=== PATIENT | female | born 1965 | race Caucasian/White ===

== ENCOUNTER 2019-06-09 16:52 | Emergency (ER) | payer SELFPAY ==
[2019-06-09] MEDS ORDERED: NA CHLORIDE 0.9% 1,000 ML ONE ×2 (17:27→19:08)
[2019-06-09 17:30] LABS: Absolute Lymphocytes (CBC) 3.1 K/uL (0.7-4.9); Basophils % 0.5 % (0-1.3); Hematocrit 38.9 % (36.0-45.0); Lymphocytes % 31.5 % (15.3-44.8); MPV 7.4 fL (7.6-11.3); RBC Red Blood Cell Count 4.56 M/uL (3.86-4.86)
[2019-06-09] MEDS ORDERED: ONDANSETRON 4 MG/2 ML VIAL ONE (17:34)
[2019-06-09] MEDS ORDERED: MEPERIDINE HCL 25 MG/0.5 ML ONE ×2 (17:34→19:08)
[2019-06-09 17:41] LABS: ALT/SGPT 30 U/L (12-78); AST/SGOT 32 U/L (15-37); Albumin 3.3 g/dL (3.4-5.0); Alkaline Phosphatase 57 U/L (45-117); BUN Blood Urea Nitrogen 25 mg/dL (7-18); Bicarbonate 27 mmol/L (21-32); Bilirubin Direct < 0.1 mg/dL (0-0.2); Bilirubin Total 0.2 mg/dL (0.2-1.0); Glucose Level 77 mg/dL (74-106); Lipase 329 U/L (73-393); Potassium 4.1 mmol/L (3.5-5.1); Protein, Total 7.1 g/dL (6.4-8.2); Sodium Level 141 mmol/L (136-145)
--- NOTE | 2019-06-09 18:23 | RAD REPORT ---
EXAM DESCRIPTION: CT - Abdomen Pelvis W Contrast - 06/09/2019 5:51 pm CLINICAL HISTORY: LLQ abd pain, eval for diverticulitis/perforation;Abd pain COMPARISON: No comparisons TECHNIQUE: Biphasic, helical CT imaging of the abdomen and pelvis was performed following 100 ml non -ionic IV contrast. No oral contrast given. All CT scans are performed using dose optimization technique as appropriate and may include automated exposure control or mA/KV adjustment according to patient size. FINDINGS: No suspicious findings in the lung bases. No pericardial effusion. Hepatomegaly is present. Craniocaudal dimension is 27 cm. This appears to be more overall enlargement than a simple Reidel lobe configuration. No splenomegaly or focal splenic abnormality. No pancreati c process seen. Gallbladder is absent. Biliary tree within normal limits for a post cholecystectomy p atient. Symmetric renal function is seen with no hydronephrosis or suspicious renal mass. No pyelonephritis o r acute parenchymal process. No bladder abnormalities. Left adrenal gland contains 2 small 15 mm low- density masses. These do not meet strict adenoma characteristics but that is still the most likely et iology. No gastric dilatation or gastric wall thickening. Retained food present stomach. No duodenum abnormal ity. Remaining small bowel is normal in diameter down to the ileocecal valve. Appendectomy clips are present. Moderate stool volume is present in the colon. There is wall thickening in the right-side of the transverse colon. This may be a peristalsis artifact. This is not the typical appearance for col on malignancy. Fish of the sigmoid colon are mildly prominent as well but little bowel content is pr esent. No free air, free fluid or inflammatory stranding. No hernia, mass or bulky lymphadenopathy. No suspicious bony findings. IMPRESSION: No bowel obstruction, free air or surgically emergent finding. Prominent fish in the sigmoid colon and right side of the transverse colon may be peristalsis artifa cts. No associated edema or stranding. Neither side shows the typical focal wall thickening associate d with malignancy. Follow-up CT imaging or follow-up colonoscopy can be obtained as warranted. Hepatomegaly with no ascites, varices or other associated findings. Two small adrenal masses most likely incidental adenomas.
[2019-06-09 18:48] LABS: Urine Blood TRACE (NEG); Urine Glucose NEGATIVE (NEG); Urine Protein NEGATIVE (NEG); Urine pH 5.5 (5.0-7.0)
--- NOTE | 2019-06-09 18:52 | EDPHYS ---
Physician Documentation [facility] Name: Kelley Ellis Age: 54 yrs Sex: Female : 1965 Arrival Date: 06/09/2019 Time: 16:58 Bed 27 Private MD: ED Physician Salinas Jiménez HPI: 06/09 17:07 This 54 yrs old Female presents to ER via EMS with complaints of abdominal rn pain. 17:07 The patient presents with abdominal pain in the left lower quadrant. Onset: The rn symptoms/episode began/occurred yesterday. The symptoms do not radiate. Associated signs and symptoms: Pertinent positives: nausea and vomiting, blood in stools, diarrhea, Pertinent negatives: fever, vomiting blood. The symptoms are described as crampy, intermittent, sharp. Modifying factors: The symptoms are alleviated by nothing, the symptoms are aggravated by touching the area. Severity of pain: At its worst the pain was moderate in the emergency department the pain is unchanged. The patient has experienced a previous episode. Reports began with left lower abd pain yesterday, assoc with vomiting/diarrhea, reports some bright red blood in stool, has hx of diverticulitis, feels like abdomen swollen. Has had appendix and gallbladder removed. No trauma.. 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 - Social history:: Smoking status: unknown. - Ebola Screening: : No symptoms or risks identified at this time. - Family history:: not pertinent. - Hospitalizations: : No recent hospitalization is reported. ROS: 17:09 Constitutional: Negative for fever, chills, and weight loss, Eyes: Negative for injury, rn pain, redness, and discharge, Neck: Negative for injury, pain, and swelling, Cardiovascular: Negative for chest pain, palpitations, and edema, Respiratory: Negative for shortness of breath, cough, wheezing, and pleuritic chest pain, Abdomen/GI: Negative for constipation MS/Extremity: Negative for injury and deformity, Skin: Negative for injury, rash, and discoloration, Neuro: Negative for headache, weakness, numbness, tingling, and seizure. Exam: 17:09 Constitutional: This is a well developed, well nourished patient who is awake, alert, rn appears in pain, tearful Head/Face: Normocephalic, atraumatic. ENT: dry MM Neck: Trachea midline, no thyromegaly or masses palpated, and no cervical lymphadenopathy. Supple, full range of motion without nuchal rigidity, or vertebral point tenderness. No Meningismus. Cardiovascular: Regular rate and rhythm. No pulse deficits. Respiratory: No increased work of breathing, no retractions or nasal flaring. Abdomen/GI: soft, + LLQ and suprapubic tenderness, no rebound MS/ Extremity: Pulses equal, no cyanosis. Neurovascular intact. Full, normal range of motion. Equal circumference. Neuro: Awake and alert, GCS 15, oriented to person, place, time, and situation. Cranial nerves II-XII grossly intact. Motor strength 5/5 in all extremities. Sensory grossly intact. Vital Signs: 17:06 BP 98 / 69; Pulse 83; Resp 17; Temp 97.6; Pulse Ox 98% on R/A; Weight 99.79 kg; Height mg2 5 ft. 4 in. (162.56 cm); Pain 10/10; 17:26 BP 128 / 70; Pulse 77; Resp 18; Pulse Ox 98% on R/A; mg2 19:06 BP 113 / 78; Pulse 72; Resp 17; Pulse Ox 95% on R/A; mg2 20:07 BP 114 / 71; Pulse 70; Resp 18; Temp 98; Pulse Ox 100% on R/A; mg2 17:06 Body Mass Index 37.76 (99.79 kg, 162.56 cm) mg2 MDM: 16:59 Patient medically screened. rn 18:50 Differential diagnosis: diverticulitis, non-specific abd pain, Pyelonephritis, rn Ureterolithiasis, urinary tract infection. Data reviewed: vital signs, nurses notes, lab test result(s), radiologic studies, CT scan, and as a result, I will discharge patient. Counseling: I had a detailed discussion with the patient and/or guardian regarding: the historical points, exam findings, and any diagnostic results supporting the discharge/admit diagnosis, lab results, radiology results, the need for outpatient follow up, to return to the emergency department if symptoms worsen or persist or if there are any questions or concerns that arise at home. Response to treatment: the patient's symptoms have mildly improved after treatment, and as a result, I will discharge patient. Special discussion: I discussed with the patient/guardian in detail that at this point there is no indication for admission to the hospital. It is understood, however, that if the symptoms persist or worsen the patient needs to return immediately for re-evaluation. ED course: Pt with possible diverticulitis on CT, + UTI on UA, will dc home with abx and symptomatic treatment.. 06/09 17:06 Order name: Basic Metabolic Panel; Complete Time: 18:48 rn 06/09 17:06 Order name: CBC with Diff; Complete Time: 18:48 rn 06/09 17:06 Order name: Creatinine for Radiology; Complete Time: 18:48 rn 06/09 17:06 Order name: Hepatic Function; Complete Time: 18:48 rn 06/09 17:06 Order name: Lipase; Complete Time: 18:48 rn 06/09 18:15 Order name: Urine Dipstick--Ancillary (enter results); Complete Time: 18:49 ar5 06/09 17:06 Order name: CT Abd/Pelvis - IV Contrast Only; Complete Time: 18:48 rn 06/09 17:06 Order name: IV Saline Lock; Complete Time: 17:16 rn 06/09 17:06 Order name: Labs collected and sent; Complete Time: 17:16 rn Administered Medications: 17:26 Drug: NS 0.9% 1000 ml Route: IV; Rate: 1000 ml; Site: right forearm; mg2 19:19 Follow up: Response: No adverse reaction; IV Status: Completed infusion; IV Intake: mg2 1000ml 17:37 Drug: Demerol 25 mg Route: IVP; Site: right forearm; mg2 19:19 Follow up: Response: No adverse reaction mg2 17:37 Drug: Zofran 4 mg Route: IVP; Site: right forearm; mg2 19:19 Follow up: Response: No adverse reaction mg2 19:04 Drug: Flagyl 500 mg Volume: 100 ml; Route: IVPB; Rate: 200 ml/hr; Infused Over: 30 mg2 mins; Site: right antecubital; 20:09 Follow up: Response: No adverse reaction; IV Status: Completed infusion mg2 19:15 Drug: NS 0.9% 1000 ml Route: IV; Rate: 1000 ml; Site: right antecubital; mg2 20:08 Follow up: Response: No adverse reaction; IV Status: Completed infusion; IV Intake: mg2 1000ml 19:15 Drug: Phenergan 12.5 mg Route: IVP; Site: right antecubital; mg2 20:08 Follow up: Response: No adverse reaction; Marked relief of symptoms mg2 19:15 Drug: Demerol 25 mg Route: IVP; Site: right antecubital; mg2 20:08 Follow up: Response: No adverse reaction; Marked relief of symptoms mg2 19:16 Drug: Cipro 400 mg Volume: 200 ml; Route: IVPB; Infused Over: 60 mins; Site: right mg2 antecubital; 20:09 Follow up: Response: No adverse reaction; IV Status: Completed infusion mg2 Disposition: 06/09/19 18:51 Discharged to Home. Impression: Diverticulitis of large intestine without perforation or abscess with bleeding, Urinary tract infection, site not specified. - Condition is Stable. - Discharge Instructions: Diverticulitis, Urinary Tract Infection, Adult. - Prescriptions for Zofran ODT 4 mg Oral tablet,disintegrating - place 1 tablet by TRANSLINGUAL route every 8 hours As needed; 20 tablet. Flagyl 500 mg Oral Tablet - take 1 tablet by ORAL route every 8 hours for 10 days; 30 tablet. Cipro 500 mg Oral Tablet - take 1 tablet by ORAL route every 12 hours for 7 days; 14 tablet. Tylenol- Codeine #3 300-30 mg Oral Tablet - take 1 tablet by ORAL route every 6 hours As needed; 20 tablet. - Medication Reconciliation Form, Thank You Letter, Antibiotic Education, Prescription Opioid Use form. - Follow up: Mika Sparrow MD; When: 2 - 3 days; Reason: Recheck today's complaints, Re-evaluation by your physician. - Problem is new. - Symptoms have improved. Signatures: Dispatcher [employer] EDMS Salinas Jiménez MD MD rn Gardose, Michele, RN RN mg2 Corrections: (The following items were deleted from the chart) 20:11 18:51 06/09/2019 18:51 Discharged to Home. Impression: Diverticulitis of large mg2 intestine without perforation or abscess with bleeding; Urinary tract infection, site not specified. Condition is Stable. Forms are Medication Reconciliation Form, Thank You Letter, Antibiotic Education, Prescription Opioid Use. Follow up: Mika Sparrow; When: 2 - 3 days; Reason: Recheck today's complaints, Re-evaluation by your physician. Problem is new. Symptoms have improved. rn
--- NOTE | 2019-06-09 18:52 | ER ---
Nurse's Notes [facility] Name: Kelley Ellis Age: 54 yrs Sex: Female : 1965 Arrival Date: 06/09/2019 Time: 16:58 Bed 27 Private MD: Diagnosis: Diverticulitis of large intestine without perforation or abscess with bleeding;Urinary tract infection, site not specified Presentation: 06/09 17:04 Presenting complaint: EMS states: she has vomiting yesterday, diarrhea and bloody stool mg2 with abdominal distention today. Transition of care: patient was not received from another setting of care. Onset of symptoms was June 09, 2019. Risk Assessment: Do you want to hurt yourself or someone else? Patient reports no desire to harm self or others. Initial Sepsis Screen: Does the patient meet any 2 criteria? No. Patient's initial sepsis screen is negative. Does the patient have a suspected source of infection? No. Patient's initial sepsis screen is negative. Care prior to arrival: None. 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 - Social history:: Smoking status: unknown. - Ebola Screening: : No symptoms or risks identified at this time. - Family history:: not pertinent. - Hospitalizations: : No recent hospitalization is reported. Screenin:47 Abuse screen: Denies threats or abuse. Denies injuries from another. Nutritional mg2 screening: No deficits noted. Tuberculosis screening: No symptoms or risk factors identified. Fall Risk IV access (20 points). Assessment: 18:37 General: Appears in no apparent distress. comfortable, Behavior is calm, cooperative. mg2 Pain: Complains of pain in abdomen Pain at worst was 10 out of 10 on a pain scale. Neuro: Level of Consciousness is awake, alert, obeys commands, Oriented to person, place, time, situation. Cardiovascular: Capillary refill < 3 seconds Patient's skin is warm and dry. Respiratory: Airway is patent Respiratory effort is even, unlabored, Respiratory pattern is regular, symmetrical. GI: Reports lower abdominal pain, upper abdominal pain, nausea, vomiting. :. 18:37 EENT: No deficits noted. No signs and/or symptoms were reported regarding the EENT mg2 system. Derm: Skin is intact, is healthy with good turgor, Skin is pink, warm \T\ dry. normal. Musculoskeletal: Circulation, motion, and sensation intact. Capillary refill < 3 seconds. 19:18 Reassessment: Patient appears in no apparent distress at this time. patient for dc mg2 after completing the iv antibiotic. 20:08 Reassessment: Patient states feeling better. Patient states symptoms have improved. mg2 Vital Signs: 17:06 BP 98 / 69; Pulse 83; Resp 17; Temp 97.6; Pulse Ox 98% on R/A; Weight 99.79 kg; Height mg2 5 ft. 4 in. (162.56 cm); Pain 10/10; 17:26 BP 128 / 70; Pulse 77; Resp 18; Pulse Ox 98% on R/A; mg2 19:06 BP 113 / 78; Pulse 72; Resp 17; Pulse Ox 95% on R/A; mg2 20:07 BP 114 / 71; Pulse 70; Resp 18; Temp 98; Pulse Ox 100% on R/A; mg2 17:06 Body Mass Index 37.76 (99.79 kg, 162.56 cm) mg2 ED Course: 16:58 Patient arrived in ED. mg2 16:59 Salinas Jiménez MD is Attending Physician. rn 17:03 Clint Sandoval RN is Primary Nurse. mg2 17:06 Triage completed. mg2 17:07 Arm band placed on. mg2 17:53 CT Abd/Pelvis - IV Contrast Only In Process Unspecified. EDMS 18:48 Patient has correct armband on for positive identification. Pulse ox on. NIBP on. Door mg2 closed. Warm blanket given. 18:48 No provider procedures requiring assistance completed. Inserted saline lock: 20 gauge mg2 in right forearm, using aseptic technique. Blood collected. 18:50 Mika Sparrow MD is Referral Physician. rn 20:08 IV discontinued, intact, bleeding controlled, No redness/swelling at site. Pressure mg2 dressing applied. Administered Medications: 17:26 Drug: NS 0.9% 1000 ml Route: IV; Rate: 1000 ml; Site: right forearm; mg2 19:19 Follow up: Response: No adverse reaction; IV Status: Completed infusion; IV Intake: mg2 1000ml 17:37 Drug: Demerol 25 mg Route: IVP; Site: right forearm; mg2 19:19 Follow up: Response: No adverse reaction mg2 17:37 Drug: Zofran 4 mg Route: IVP; Site: right forearm; mg2 19:19 Follow up: Response: No adverse reaction mg2 19:04 Drug: Flagyl 500 mg Volume: 100 ml; Route: IVPB; Rate: 200 ml/hr; Infused Over: 30 mg2 mins; Site: right antecubital; 20:09 Follow up: Response: No adverse reaction; IV Status: Completed infusion mg2 19:15 Drug: NS 0.9% 1000 ml Route: IV; Rate: 1000 ml; Site: right antecubital; mg2 20:08 Follow up: Response: No adverse reaction; IV Status: Completed infusion; IV Intake: mg2 1000ml 19:15 Drug: Phenergan 12.5 mg Route: IVP; Site: right antecubital; mg2 20:08 Follow up: Response: No adverse reaction; Marked relief of symptoms mg2 19:15 Drug: Demerol 25 mg Route: IVP; Site: right antecubital; mg2 20:08 Follow up: Response: No adverse reaction; Marked relief of symptoms mg2 19:16 Drug: Cipro 400 mg Volume: 200 ml; Route: IVPB; Infused Over: 60 mins; Site: right mg2 antecubital; 20:09 Follow up: Response: No adverse reaction; IV Status: Completed infusion mg2 Intake: 19:19 IV: 1000ml; Total: 1000ml. mg2 20:08 IV: 1000ml; Total: 2000ml. mg2 Outcome: 18:51 Discharge ordered by . rn 20:10 Discharged to home ambulatory. mg2 20:10 Condition: good 20:10 Discharge instructions given to patient, Instructed on discharge instructions, follow up and referral plans. medication usage, Demonstrated understanding of instructions, follow-up care, medications, wound care, Prescriptions given X 4. 20:11 Patient left the ED. mg2 Signatures: Dispatcher [employer] EDMS Salinas Jiménez MD MD rn Gardose, Michele, RN RN mg2
[2019-06-09] MEDS ORDERED: METRONIDAZOLE 500mg IVPB 500 MG/100 ML BAG IV ONE (19:01)
[2019-06-09] MEDS ORDERED: Ciprofloxacin 200mg IV 200 MG/100 ML IV.SOLN. IV ONE (19:01)
[2019-06-09] MEDS ORDERED: PROMETHAZINE INJ 25 MG/ML AMP ONE (19:08)
[2019-06-10 10:26] VITALS: BP 114/71; TEMP 98; O2SAT 100
== END 2019-06-09 20:11 | disposition home or self-care (01) ==
LOC: EDBD 16:52 → ER 16:52
DX: K57.32 Diverticulitis of large intestine without perforation or abscess without bleeding (principal); N39.0 Urinary tract infection, site not specified; I10 Essential (primary) hypertension; Z88.0 Allergy status to penicillin; Z88.3 Allergy status to other anti-infective agents; Z88.8 Allergy status to other drugs, medicaments and biological substances
CPT/HCPCS: 36415; 74177; 80048; 80076; 81003; 83690; 85025; 96361; 96365; 96368; 96375; 99284; J0744; J2175; J2405; J2550; J7030; Q9967